=== PATIENT | female | born 1950 | race Caucasian/White ===

== ENCOUNTER 2024-11-26 11:00 | Outpatient (RCR) | payer MEDICARE, SELFPAY ==
--- NOTE | 2024-10-17 15:37 | HP.PTEVAL ---
Patient's Visit Information Visit Information Visit Information: SPIKE DORSEY is a 74 year old F referred to Physical Therapy by BRENNON OLSEN with a diagnosis of R Rotator cuff sprain re tear. Date of Evaluation: 10/17/24 Physical Therapist: Mp Daly, PT, ALEXANDRE, SCS, CSCS Visit Plan Frequency: 2x /Week Duration: 6 Weeks Plan: Start with light ext rotation and anterior deltoid strengthing. Include modlaiteis such as US and estim to control pain Subjective Subjective: Mrs. 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 Approximately 10 year ago she had a R rotator cuff repair. Three weeks ago she fell on her r side on the ice and hurt her shoulder and r hip. Dr. Olsen gave her a corticosteroid injection 2.26 and last night was the first night she has slept thru the night sinc her fall. Prior the injection it hurt her to mop or really move her arm. She is relatively healthy and is active with dog breeding Pain Right Shoulder: Pain Intensity (Out of 10): 1 Pain Intensity Range: 1 and 9 Objective Objective: DTR WFLS, Prom in 160+ with minimal pain can actively elevate to 150 at this time. MMT for this r hand dominate individual is L 18.4 ext/ 28 int rot R 7 ext/27 int rot. Belly push off was painful Balance/Special Test Scores Quick DASH Score: 47.5000 Goals Goal 1:: Understand the rotator cuff anatomy and return demo HEP Goal Time Frame: 1 Week Goal 2:: Improve should flexion, abduction to 175+ Goal Time Frame: 2-4 Weeks Goal 3:: Improve ext rotation to 14lbs if possible Goal Time Frame: 4-6 Weeks Rehabilitation Potential Physical Therapy Diagnosis: R Rotator cuff tear Rehabilitation Potential: Good Anticipated Interventions Patient/Client Instruction: Educate patient on: Condition and Plan of Care For the Purpose of:: To decrease pain, To increase ROM and To improve ability to perform ADL's Therapeutic Exercise to Include: Strength training and Flexibilty training For the Purpose of:: To decrease pain, To increase ROM and To improve endurance IF ES: Yes Ultrasound (thermal/non thermal): Yes For the Purpose of:: To decrease pain, To decrease swelling/inflammation and To increase ROM Text: Thank you for the opportunity to evaluate your patient. For Medicare and Medicare HMO plans, please review the plan of care and approve it. It will need to be FAXED BACK to us at [phone] for Medicare purposes. For Medicare only, by signing this I certify the plan of care. Please let me know if there are questions or concerns regarding this plan of care. Physician Signature: Date:
--- NOTE | 2024-11-26 11:49 | HP.PTDCSUM_ITS ---
Discharge Summary D/C summary: It has been my pleasure to treat SPIKE LINDA referred by BRENNON OLSEN, with the diagnosis of R Rotator cuff sprain re tear for a total of 9 visit(s). Discharge Date: 11/26/24 Please see the following information for a summary of their discharge status. Subjective Subjective: Actually all things considered I'm doing pretty well. Its really my hip that is bothering me and I'm schedule to see the Dr on the the 15th. 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 Pain Right Shoulder: Pain Intensity (Out of 10): 1 Overall Improvement % Improvement: 65 Objective Objective/Function: Able to raise B arms to 170+ flexion without pain as well as abduction. MMT R ext rot 8.6lbs Int Rot 27 L ext rot 18.6 Int Rot 27. Quick Dash improved from 47 to 25. Goals Goal 1:: Understand the rotator cuff anatomy and return demo HEP Goal Progress: Goal Met Goal 2:: Improve should flexion, abduction to 175+ Goal Progress: Progressing Goal 3:: Improve ext rotation to 14lbs if possible Plan Plan: Discharge to [facility]. I asked Mrs. Linda if she had any change in her function or strength to come to me and I would reassess or follow-up with Sarthak Phillips. D/C Information Discharge Comments: Despite her large Rotator cuff tear Mrs Linda is progressing nicely. The hope is to maintain function while managing her [employer] d/c sentence: If there are questions or concerns regarding this patient's physical therapy, please feel free to call me at [phone]. Thank you for the referral of this patient. Sincerely, Mp Daly, PT, ALEXANDRE, SCS, CSCS Balance/Gait/Functional tests Balance/Special Test Scores Quick DASH Score: 25.0000 Improvement % Improvement: 65
== END 2024-11-26 19:00 | disposition home or self-care (01) ==
LOC: PT 11:00
PROVIDERS: PCP Family Medicine
DX: S46.011D Strain of muscle(s) and tendon(s) of the rotator cuff of right shoulder, subsequent encounter (principal); M25.511 Pain in right shoulder; M75.121 Complete rotator cuff tear or rupture of right shoulder, not specified as traumatic
CPT/HCPCS: 97035; 97110; 97161; 97530